=== PATIENT | female | born 1950 | race Caucasian/White ===

== ENCOUNTER → 2017-08-31 | Day surgery (SDC) | payer OTHER ==
[~2017-08-31] VITALS: Ht 157.5 cm; Wt 95.0 kg
[~2017-08-31] MED LIST: BUPIVACAINE HCL PF 0.5% 30 ML VIAL ONE; CEPH-459 PO; CHLORHEXIDINE GLUCONATE 2 % 1 PACK (2 CLOTHS) TOPICAL PRN; CYCL1PAK PO; CYMB30CA PO; DICL75TA PO; FAMOTIDINE 20 MG/2 ML VIAL ONE; HYDR-3288 PO; HYDR-3516 PO; HYDR25TA5 PO; LACTATED RINGER'S 1000 ML IV PRN; LIDOCAINE HCL 2% 50 ML VIAL ONE; LISI-515 PO; METOPROLOL TARTRATE 25 MG TAB PO PRN; MIDAZOLAM HCL 2 MG/2 ML VIAL ONE; NEOMYCIN/POLYMYXIN 1 ML G.U. IRRIGANT ONE; POVIDONE IODINE 5% (ANTISEPSIS KIT) 4 APPLICATIONS EACH NARE PRN; SODIUM CHLORID 0.9% 500 ML IV PRN; ceFAZolin 2 GM PREMIX 50 ML IV SCH
[2017-08-31 09:33] VITALS: PULSE 83
--- NOTE | 2017-08-31 10:05 | EKG ---
Date Performed: 08/31/2017 Time Performed: 06:57:09 PTAGE: 66 years EKG: Sinus rhythm NORMAL ECG NO PREVIOUS TRACING DOCTOR: Sha Fung Interpretating Date/Time 08/31/2017 10:04:43
--- NOTE | 2017-08-31 10:18 | MP ---
cc: CRISTIAN MESSINA III, M.D. DATE OF SURGERY 08/31/2017 PREOPERATIVE DIAGNOSIS Left fourth Dupuytren's contracture and loss of domain. POSTOPERATIVE DIAGNOSIS Left fourth Dupuytren's contracture and loss of domain. PROCEDURE Left fourth palmar fasciectomy and closure with Z-plasties and full-thickness skin graft. SURGEON Cristian Messina III MD TOURNIQUET TIME 16 minutes at 200 mmHg. PROCEDURE NOTE The patient was brought to the operating room, placed supine on the operating room table. After the correct site and side of surgery were verified by members of each team in the room multiple times including the patient and myself and after adequate markings and after adequate preoperative time-out was performed to everyone's satisfaction and after adequate general anesthesia had been achieved, the left upper extremity was prepped and draped in the traditional sterile surgical fashion, lines were diagrammed on the palm and the finger. A 50/50 mixture of 2% plain lidocaine and 0.5% plain Marcaine was infiltrated in the skin and subcutaneous tissue at the base of the palm. The limb was exsanguinated with a gentle George wrap and a highly placed well-padded axillary tourniquet was inflated to 200 mmHg for a total 16 minutes. The hand was palm up in a padded lead hand. A longitudinally oriented incision was made overlying the palmar cord that was very prominent. Blunt and sharp dissection were used as well as limited bipolar electrocautery as needed. The fascial cord was dissected free from the surrounding tissue starting from the palm. The neurovascular bundles were identified radially and ulnarly and protected and dissected away from the cord which inserted into the PIP joint. It was dissected free and passed off the field in its entirety as a specimen. Thorough irrigation with a liters worth of saline was then used. Z-plasties were made over the palmar flexion crease. Once the ring finger was completely extended, there was a 1-2 cm loss of domain and a great deal of redundant skin at the base of the ring finger. Some of this resected and used as a full-thickness skin graft for the large area of exposed subcutaneous tissue. Dermoplasty was done to contour the finger and the skin edges were reapproximated using interrupted and running 4-0 nylon sutures leaving some gaps should their be any postoperative bleeding. The axillary tourniquet was released prior to all this and pressure was for five minutes. There was no active bleeding at all in the hand and all the fingers including the ring finger became immediately soft, pink and warm and had brisk capillary refill of less than two seconds. Thorough irrigation was performed several more times. The full-thickness skin graft was then debrided of all adipose tissue, tailored to size and shape and secured in place with interrupted 4-0 chromic sutures. Thorough irrigation was performed. The finger was now able to be hyperextended passively. The hand and arm were thoroughly cleansed and dried. Betadine Adaptic dressing was applied on top of the wounds, followed by a bulky conforming soft dressing keeping all fingers extended and leaving the thumb out. A volar immobilizing splint was used for this. The patient was awakened from anesthesia and transported to the Post Anesthesia Care Unit awake and in stable condition at the end of the case. The sponge, needle and instrument counts were correct at the end of the case as reported by nurses in the room. MD RAMIRO Morales III/[place] /9:42 AM /9:49 AM
[2017-08-31 10:25] VITALS: BP 124/64; PULSE 84; RESP 16; TEMP 98.2; O2SAT 98
== END | disposition home or self-care (01) ==
LOC: PHSDC 06:03
PROVIDERS: ATTEND Orthopaedic Surgery Hand Surgery
DX: M72.0 Palmar fascial fibromatosis [Dupuytren] (principal); I10 Essential (primary) hypertension
CPT/HCPCS: 01810; 26123; 88304; 93005; J0690; J2250; J7120; 88305